=== PATIENT | female | born 1965 | race Caucasian/White ===

== ENCOUNTER 2023-08-13 13:31 | Emergency (ER) | payer OTHER ==
[2023-08-13] MEDS: Lidocaine 1% 10 ML MDV INJECT ONE (14:49)
== END 2023-08-13 15:59 | disposition home or self-care (01) ==
LOC: JD.ED 13:31
DX: S01.81XA Laceration without foreign body of other part of head, initial encounter (principal); E78.00 Pure hypercholesterolemia, unspecified; Z88.2 Allergy status to sulfonamides; Z88.1 Allergy status to other antibiotic agents; V80.010A Animal-rider injured by fall from or being thrown from horse in noncollision accident, initial encounter; Y93.52 Activity, horseback riding
CPT/HCPCS: 12011; 70450; 70450-26; 70486; 70486-26; 72125; 72125-26; 73502-26-RT; 73502-RT; 99282; 99284; J3490